=== PATIENT | male | born 1995 | race Caucasian/White ===

== ENCOUNTER 2019-09-05 10:02 | Emergency (ER) | payer OTHER ==
[~2019-09-05] VITALS: Ht 172.7 cm; Wt 74.8 kg
[2019-09-05 10:59] LABS: INFLUENZA A ANTIGEN Negative (Negative); INFLUENZA B ANTIGEN Negative (Negative)
[2019-09-05 11:24] VITALS: BP 133/74
== END 2019-09-05 11:25 | disposition home or self-care (01) ==
LOC: M.ERS 10:02
PROVIDERS: Emergency Medicine
DX: J06.9 Acute upper respiratory infection, unspecified (principal)